=== PATIENT | female | born 1995 | race Asian ===

== ENCOUNTER 2024-06-20 07:21 | Day surgery (SDC) | payer BC ==
[~2024-06-20] VITALS: Ht 167.6 cm; Wt 66.7 kg
[~2024-06-20 07:21] MED LIST: LR 1,000 ML IV SCH
[2024-06-20] MEDS ORDERED: ZOFRAN ODT4 MG PO (08:11)
[2024-06-20] MEDS ORDERED: BENTYL 20MG20 MG/TAB PO (08:12)
[2024-06-20] MEDS ORDERED: GAS AID MAXIMU125 MG PO (08:13)
[2024-06-20 08:25] VITALS: BP 112/73; PULSE 73; TEMP 98.7
--- NOTE | 2024-06-20 08:31 | NUR ---
Patient admitted to [facility]. Alert, oriented x4, steady gait. Urine sample obtained and sent to lab. Pt reports bowel prep effective, clear yellow stools. VSS, see flowsheet. 20G IV inserted into Right hand. LR infusing as ordered without complications. Consents signed, questions answered. Partner, Najma at bedside. Resting in recliner chair with feet elevated, call light within reach.
[2024-06-20] MEDS ORDERED: Lidocaine PF 2% (20 MG/ML) 5 ML VIAL ONE (08:46)
[2024-06-20] MEDS ORDERED: Glycopyrrolate 0.2 MG/ML 1 ML VIAL ONE (08:46)
[2024-06-20 09:45] VITALS: BP 110/70; PULSE 80; TEMP 97.6
--- NOTE | 2024-06-20 09:45 | NUR ---
PATIENT AMBULATED TO CHAIR WITH STEADY GAIT, ASSIST OF 2. ALERT AND AWAKE. DENIES PAIN, NAUSEA AND SHORTNESS OF BREATH. BREATHING REGULAR AND UNLABORED ON ROOM AIR. SKIN WARM AND DRY. IV IN PLACE. NURSE HANDOFF COMPLETED IN ROOM. SEE CHART FOR VITAL SIGNS. PATIENT HAD WATER AND CHOCOLATE PUDDING. BOTH FOOD AND DRINK TOLERATED WELL, NO DYSPHAGIA. CALL LIGHT IN REACH.
[2024-06-20 10:00] VITALS: BP 114/80; PULSE 72
[2024-06-20] MEDS ORDERED: Ondansetron 4 MG/2 ML VIAL IV PRN (10:00)
[2024-06-20 10:10] VITALS: BP 116/81; PULSE 82
--- NOTE | 2024-06-20 10:21 | NUR ---
1010:DISCHARGE TEACHING COMPLETED WITH PRINTED EDUCATION AND INSTRUCTIONS SENT HOME WITH PATIENT. PATIENT VERBALIZED UNDERSTANDING OF TEACHING. 1012:IV REMOVED. GAUZE AND COBAN PLACED OVER SITE. 1017: MET WITH PATIENT IN ROOM TO DISCUSS PROCEDURE. 1021: PATIENT DISCHARGED HOME WITH [facility].
[2024-06-20 10:23] VITALS: BP 92/59; PULSE 74
== END 2024-06-20 10:21 | disposition home or self-care (01) ==
LOC: SDCO 07:21
DX: R10.9 Unspecified abdominal pain (principal); R11.2 Nausea with vomiting, unspecified; R19.7 Diarrhea, unspecified; R14.0 Abdominal distension (gaseous); K59.00 Constipation, unspecified; K62.89 Other specified diseases of anus and rectum; Z86.19 Personal history of other infectious and parasitic diseases; Z86.010 Personal history of colon polyps
CPT/HCPCS: J2704; J7120